=== PATIENT | female | born 1945 | race Caucasian/White ===

== ENCOUNTER 2016-05-16 15:41 | Inpatient (IN) | payer MEDICARE ==
[~2016-05-16] VITALS: Ht 160 cm; Wt 52.2 kg
[2016-05-16 16:06] LABS: BASOPHILS # (AUTO) 0.4 /CMM (0.0-0.2); BASOPHILS % (AUTO) 2.6 % (0.0-2.0); DIFF TOTAL % 100 %; EOSINOPHILS # (AUTO) 0.1 /CMM (0.0-0.7); EOSINOPHILS % (AUTO) 0.4 % (0.0-6.0); HEMATOCRIT 34 % (33-45); HEMOGLOBIN 11.5 g/dL (11.5-14.8); LYMPHOCYTES # (AUTO) 1.8 /CMM (0.8-4.8); LYMPHOCYTES % (AUTO) 10.5 % (20.0-44.0); MEAN CORPUSCULAR HEMOGLOBIN 31 PG (26.0-33.0); MEAN CORPUSCULAR HGB CONC 34 g/dl (31.0-36.0); MEAN CORPUSCULAR VOLUME 90 fL (82-100); MONOCYTES # (AUTO) 0.8 /CMM (0.1-1.30); MONOCYTES % (AUTO) 4.8 % (2.0-12.0); NEUTROPHILS # (AUTO) 13.9 /CMM (1.8-8.9); NEUTROPHILS % (AUTO) 81.7 % (43.0-81.0); PLATELET COUNT (AUTO) 413 /CMM (150-450); RED BLOOD CELL COUNT(AUTO) 3.73 MIL/uL (4.0-5.2)
[2016-05-16 16:18] LABS: ANION GAP 12 (5-14); CALCIUM, SERUM 8.8 mg/dL (8.5-10.1); CARBON DIOXIDE 29 mmol/L (21-32); CHLORIDE 93 mmol/L (98-107); CREATININE 0.6 mg/dL (0.6-1.3); GLUCOSE 123 mg/dL (74-106); POTASSIUM 3.6 mmol/L (3.5-5.1); SODIUM SERUM 130 mmol/L (136-145); UREA NITROGEN, BLOOD 9 mg/dL (7-18)
[2016-05-16 16:22] LABS: ALANINE AMINOTRANSFERASE 168 U/L (12-78); ASPARTATE AMINOTRANSFERASE 14 U/L (15-37); BILIRUBIN,DIRECT 0.1 mg/dL (0.0-0.2); BILIRUBIN,TOTAL 0.3 mg/dL (0.2-1.0); INDIRECT BILIRUBIN 0.2 mg/dL (0.0-1.1)
[2016-05-16 16:23] LABS: ACETAMINOPHEN 0 ug/ml (10-30); SALICYLATE 0.9 mg/dL (2.8-20.0)
[2016-05-16 17:55] LABS: ANISOCYTOSIS 1+; BAND % (MANUAL) 1 % (0.0-5.0); LYMPHOCYTES % (MANUAL) 9 % (16-48); PLATELET ESTIMATE ADEQUATE
[2016-05-16 20:00] VITALS: BP 134/66
[2016-05-16] MEDS ORDERED: ACETAMINOPHEN 325 MG TABLET PO PRN (20:00)
[2016-05-16] MEDS ORDERED: MAG HYDROX/AL HYDROX/SIMETH 30 ML UDC PO PRN (20:00)
[2016-05-16] MEDS ORDERED: MAGNESIUM HYDROXIDE 30 ML UDC PO PRN (20:00)
[2016-05-16] MEDS ORDERED: LORAZEPAM 0.5 MG TABLET PO PRN (20:00)
[2016-05-16] MEDS ORDERED: DULO30CA2 PO (20:23)
[2016-05-16] MEDS ORDERED: FENT1PAT5 TD (20:23)
[2016-05-16] MEDS ORDERED: PANT40TA4 PO (20:23)
[2016-05-16] MEDS ORDERED: HYDR-552 PO (20:23)
[2016-05-16] MEDS ORDERED: HYDR-548 PO (20:23)
[2016-05-16] MEDS: FENTANYL TD PATCH (50 MCG/HR) 50 MCG/HR PATCH.TD72 TD SCH (21:00)
[2016-05-16] MEDS ORDERED: TEMAZEPAM 7.5 MG CAPSULE ONE (21:26)
[2016-05-16] MEDS: HYDROCODONE/APAP 10/325MG 1 EA TABLET PO PRN (21:44)
[2016-05-16] MEDS: SULFAMETH/TRIMETH 800/160 MG 1 UDTAB TABLET PO SCH (21:44)
[2016-05-16] MEDS: TEMAZEPAM 7.5 MG CAPSULE PO PRN (23:41)
[2016-05-17] MEDS ORDERED: HYDROCODONE/APAP 5/325MG 1 EACH TABLET ONE (05:13)
[2016-05-17] MEDS: HYDROCODONE/APAP 5/325MG 1 EACH TABLET PO PRN (05:18)
[2016-05-17 07:58] LABS: DIFF TOTAL % 100 %; EOSINOPHILS % (AUTO) 0.3 % (0.0-6.0); HEMATOCRIT 35 % (33-45); HEMOGLOBIN 11.7 g/dL (11.5-14.8); LYMPHOCYTES # (AUTO) 1.3 /CMM (0.8-4.8); LYMPHOCYTES % (AUTO) 8.6 % (20.0-44.0); MEAN CORPUSCULAR HEMOGLOBIN 31 PG (26.0-33.0); MEAN CORPUSCULAR HGB CONC 34 g/dl (31.0-36.0); MEAN CORPUSCULAR VOLUME 91 fL (82-100); MONOCYTES # (AUTO) 0.7 /CMM (0.1-1.30); MONOCYTES % (AUTO) 4.8 % (2.0-12.0); NEUTROPHILS # (AUTO) 12.6 /CMM (1.8-8.9); NEUTROPHILS % (AUTO) 86.3 % (43.0-81.0); PLATELET COUNT (AUTO) 425 /CMM (150-450); WHITE BLOOD COUNT (AUTO) 14.6 K/uL (4.3-11.0)
[2016-05-17 08:00] VITALS: BP 140/66
[2016-05-17 08:33] LABS: BILIRUBIN,TOTAL 0.3 mg/dL (0.2-1.0); CALCIUM, SERUM 8.8 mg/dL (8.5-10.1); CREATININE 0.6 mg/dL (0.6-1.3); POTASSIUM 3.8 mmol/L (3.5-5.1); TOTAL PROTEIN, SERUM 6.9 g/dL (6.4-8.2)
[2016-05-17] MEDS: PANTOPRAZOLE 40 MG TABLET.DR PO SCH (11:11)
[2016-05-17] MEDS: SULFAMETH/TRIMETH 800/160 MG 1 UDTAB TABLET PO SCH ×2 (11:11→21:17)
[2016-05-17] MEDS: HYDROCODONE/APAP 10/325MG 1 EA TABLET PO PRN ×2 (11:11→18:10)
[2016-05-17 16:00] VITALS: BP 123/73
[2016-05-17 20:00] VITALS: BP 137/72
[2016-05-17] MEDS: MIRTAZAPINE 15 MG TABLET PO SCH (21:17)
[2016-05-17] MEDS: TEMAZEPAM 7.5 MG CAPSULE PO PRN (21:17)
[2016-05-18] MEDS: HYDROCODONE/APAP 10/325MG 1 EA TABLET PO PRN ×3 (03:42→17:07)
[2016-05-18 08:00] VITALS: BP 147/72
[2016-05-18] MEDS: SULFAMETH/TRIMETH 800/160 MG 1 UDTAB TABLET PO SCH ×2 (09:10→21:37)
[2016-05-18] MEDS: PANTOPRAZOLE 40 MG TABLET.DR PO SCH (09:10)
[2016-05-18 16:10] VITALS: BP 131/69
[2016-05-18 19:56] VITALS: BP 135/59
[2016-05-18] MEDS: FENTANYL TD PATCH (50 MCG/HR) 50 MCG/HR PATCH.TD72 TD SCH (20:07)
[2016-05-18] MEDS: MIRTAZAPINE 15 MG TABLET PO SCH (21:37)
[2016-05-18] MEDS: ZOLPIDEM TARTRATE 5 MG TABLET PO PRN (21:49)
[2016-05-19] MEDS: HYDROCODONE/APAP 5/325MG 1 EACH TABLET PO PRN ×2 (01:35→23:37)
[2016-05-19 08:00] VITALS: BP 141/90
[2016-05-19] MEDS: SULFAMETH/TRIMETH 800/160 MG 1 UDTAB TABLET PO SCH ×2 (08:50→21:51)
[2016-05-19] MEDS: PANTOPRAZOLE 40 MG TABLET.DR PO SCH (08:50)
[2016-05-19] MEDS: HYDROCODONE/APAP 10/325MG 1 EA TABLET PO PRN (12:52)
[2016-05-19 16:20] VITALS: BP 113/71
[2016-05-19 19:57] VITALS: BP 124/69
[2016-05-19] MEDS: FENTANYL TD PATCH (50 MCG/HR) 50 MCG/HR PATCH.TD72 TD SCH (21:00)
[2016-05-19] MEDS: ZOLPIDEM TARTRATE 5 MG TABLET PO PRN (21:51)
[2016-05-19] MEDS: MIRTAZAPINE 15 MG TABLET PO SCH (21:51)
[2016-05-20] MEDS: HYDROCODONE/APAP 10/325MG 1 EA TABLET PO PRN ×2 (05:38→15:37)
[2016-05-20 08:12] VITALS: BP 115/66
[2016-05-20] MEDS: SULFAMETH/TRIMETH 800/160 MG 1 UDTAB TABLET PO SCH ×2 (08:22→21:13)
[2016-05-20] MEDS: PANTOPRAZOLE 40 MG TABLET.DR PO SCH (08:22)
[2016-05-20 16:30] VITALS: BP 134/68
[2016-05-20 20:00] VITALS: BP 136/61
[2016-05-20 20:21] VITALS: BP 136/61
[2016-05-20] MEDS: MIRTAZAPINE 15 MG TABLET PO SCH (21:13)
[2016-05-21] MEDS: HYDROCODONE/APAP 10/325MG 1 EA TABLET PO PRN ×3 (01:05→16:04)
[2016-05-21 07:36] LABS: BASOPHILS % (AUTO) 0.2 % (0.0-2.0); DIFF TOTAL % 100 %; EOSINOPHILS # (AUTO) 0.1 /CMM (0.0-0.7); EOSINOPHILS % (AUTO) 1.1 % (0.0-6.0); HEMATOCRIT 36 % (33-45); HEMOGLOBIN 11.9 g/dL (11.5-14.8); LYMPHOCYTES # (AUTO) 1.5 /CMM (0.8-4.8); MEAN CORPUSCULAR HEMOGLOBIN 30 PG (26.0-33.0); MEAN CORPUSCULAR HGB CONC 34 g/dl (31.0-36.0); MEAN CORPUSCULAR VOLUME 90 fL (82-100); MONOCYTES # (AUTO) 0.5 /CMM (0.1-1.30); MONOCYTES % (AUTO) 6.3 % (2.0-12.0); NEUTROPHILS # (AUTO) 6.2 /CMM (1.8-8.9); NEUTROPHILS % (AUTO) 74.4 % (43.0-81.0); PLATELET COUNT (AUTO) 513 /CMM (150-450); RED BLOOD CELL COUNT(AUTO) 3.92 MIL/uL (4.0-5.2); WHITE BLOOD COUNT (AUTO) 8.3 K/uL (4.3-11.0)
[2016-05-21 07:44] LABS: CHOLESTEROL 183 mg/dL (<200); HDL CHOLESTEROL 33 mg/dL (40-60); LDL 123 mg/dL (0-99); TRIGLYCERIDES 133 mg/dL (30-150)
[2016-05-21 08:00] VITALS: BP 106/66
[2016-05-21] MEDS: PANTOPRAZOLE 40 MG TABLET.DR PO SCH (08:16)
[2016-05-21] MEDS: SULFAMETH/TRIMETH 800/160 MG 1 UDTAB TABLET PO SCH ×2 (08:16→21:10)
[2016-05-21 16:00] VITALS: BP 119/55
[2016-05-21 17:36] LABS: KETONES,URINE NEGATIVE (NEGATIVE); LEUKOCYTE ESTERASE ,URINE NEGATIVE (NEGATIVE)
[2016-05-21 17:39] LABS: ADD UA MICROSCOPIC YES
[2016-05-21 19:00] LABS: ADD URINE CULTURE NO; RBC,URINE 0-2 /HPF (0-2); WBC,URINE NONE SEEN /HPF (0-3)
[2016-05-21 19:51] VITALS: BP 125/69
[2016-05-21] MEDS: ZOLPIDEM TARTRATE 5 MG TABLET PO PRN (21:10)
[2016-05-21] MEDS: MIRTAZAPINE 15 MG TABLET PO SCH (21:10)
[2016-05-22 07:33] LABS: BASOPHILS % (AUTO) 0.4 % (0.0-2.0); DIFF TOTAL % 100 %; EOSINOPHILS # (AUTO) 0.1 /CMM (0.0-0.7); EOSINOPHILS % (AUTO) 0.9 % (0.0-6.0); HEMATOCRIT 39 % (33-45); HEMOGLOBIN 12.9 g/dL (11.5-14.8); LYMPHOCYTES # (AUTO) 1.7 /CMM (0.8-4.8); LYMPHOCYTES % (AUTO) 18.8 % (20.0-44.0); MEAN CORPUSCULAR HEMOGLOBIN 30 PG (26.0-33.0); MEAN CORPUSCULAR HGB CONC 33 g/dl (31.0-36.0); MEAN CORPUSCULAR VOLUME 92 fL (82-100); MONOCYTES # (AUTO) 0.6 /CMM (0.1-1.30); MONOCYTES % (AUTO) 6.6 % (2.0-12.0); NEUTROPHILS # (AUTO) 6.5 /CMM (1.8-8.9); NEUTROPHILS % (AUTO) 73.3 % (43.0-81.0); PLATELET COUNT (AUTO) 564 /CMM (150-450); RED BLOOD CELL COUNT(AUTO) 4.29 MIL/uL (4.0-5.2); WHITE BLOOD COUNT (AUTO) 8.9 K/uL (4.3-11.0)
[2016-05-22 08:00] VITALS: BP 137/72
[2016-05-22 08:02] LABS: CALCIUM, SERUM 9.4 mg/dL (8.5-10.1); CREATININE 0.7 mg/dL (0.6-1.3); PHOSPHORUS 3.8 mg/dL (2.5-4.9); POTASSIUM 4.3 mmol/L (3.5-5.1)
[2016-05-22] MEDS: SULFAMETH/TRIMETH 800/160 MG 1 UDTAB TABLET PO SCH ×2 (08:48→20:35)
[2016-05-22] MEDS: PANTOPRAZOLE 40 MG TABLET.DR PO SCH (08:48)
[2016-05-22] MEDS: HYDROCODONE/APAP 10/325MG 1 EA TABLET PO PRN ×2 (09:09→16:43)
[2016-05-22 16:00] VITALS: BP 109/73
[2016-05-22 20:05] VITALS: BP 108/57
[2016-05-22] MEDS: FENTANYL TD PATCH (50 MCG/HR) 50 MCG/HR PATCH.TD72 TD SCH (20:39)
[2016-05-22] MEDS: MIRTAZAPINE 15 MG TABLET PO SCH (21:19)
[2016-05-22] MEDS: ZOLPIDEM TARTRATE 5 MG TABLET PO PRN (21:20)
[2016-05-23 08:00] VITALS: BP 122/67
[2016-05-23 08:07] VITALS: BP 122/67
[2016-05-23] MEDS: HYDROCODONE/APAP 10/325MG 1 EA TABLET PO PRN (09:34)
[2016-05-23] MEDS: SULFAMETH/TRIMETH 800/160 MG 1 UDTAB TABLET PO SCH (09:34)
[2016-05-23] MEDS: PANTOPRAZOLE 40 MG TABLET.DR PO SCH (09:34)
== END 2016-05-23 14:45 | disposition home or self-care (01) | DRG 881 ==
LOC: ER 15:47 → GPS 18:40
PROVIDERS: ADMIT Psychiatry & Neurology Psychiatry; ATTEND Student in an Organized Health Care Education/Training Program
DX: F32.9 Major depressive disorder, single episode, unspecified (principal); F11.20 Opioid dependence, uncomplicated; E87.1 Hypo-osmolality and hyponatremia; N39.0 Urinary tract infection, site not specified; G89.29 Other chronic pain; Z91.5 Personal history of self-harm; Z96.642 Presence of left artificial hip joint; Z96.651 Presence of right artificial knee joint; Z90.49 Acquired absence of other specified parts of digestive tract; R74.0 Nonspecific elevation of levels of transaminase and lactic acid dehydrogenase [LDH]; K21.9 Gastro-esophageal reflux disease without esophagitis; R73.9 Hyperglycemia, unspecified; D72.829 Elevated white blood cell count, unspecified
CPT/HCPCS: 36415; 80048-TC; 80053-TC; 80061-TC; 80076-TC; 81000-TC; 83735-TC; 84100-TC; 85025-TC; 87081-TC; 87086-TC; A4606; G6038-TC; G6039-TC; G6040-TC; Z7610